=== PATIENT | male | born 1930 | race Caucasian/White ===

== ENCOUNTER 2018-09-05 15:57 | Inpatient (IN) | payer MEDICARE, MEDICAID ==
[2018-09-05] MEDS ORDERED: Acetaminophen 650 MG Suppository PR PRN (18:37)
[2018-09-05] MEDS ORDERED: Acetaminophen 325 MG TAB PO PRN (18:37)
[2018-09-05] MEDS ORDERED: Ondansetron ODT 4 MG TAB PO PRN (18:37)
[2018-09-05] MEDS ORDERED: Ondansetron PF 4 MG/2 ML Vial IVP PRN (18:37)
[2018-09-05] MEDS ORDERED: Vancomycin HCl 1.5 GM in Sodium Chloride 0.9% 250 ML 300 ML IVPB ONE (20:00)
[2018-09-05] MEDS: Famotidine/PF 20 mg/2ml Vial SLOW IVP SCH (21:42)
[2018-09-05] MEDS: Cefepime 2 GM in Sodium Chloride 0.9% 100 ML IVPB SCH (21:42)
[2018-09-05 22:54] VITALS: BMI 26.7
--- NOTE | 2018-09-06 00:41 | HP ---
PRIMARY CARE PHYSICIAN: Dr. Rhodes. CHIEF COMPLAINT: Vomiting and fever. HISTORY OF PRESENT ILLNESS: This is an 88-year-old white male with a known history of progressive dementia as well as hypertension, who presents as a transfer from [facility]. The patient is a resident of [facility]. Had progression of dementia where he sleeps most of the time and talks very little now. He was in his normal state of health even through [facility] and was brought to the home by his family for a couple hours to spend [place] with them. In the [facility], he was noted to have nausea and vomiting starting yesterday. They started to have him sitting up most of the time and switching him to a liquid diet to try and prevent aspiration. He vomited again this morning and then hours after that, he was noted to have a low-grade temperature. At the [facility], he was also noted to have some wet breath sounds and so he was transferred to [facility]. In the [facility], he was noted to have a lactic acid of 4.4. He has also had a low oxygen saturation in the 70s to 80s on a Ventimask. He was given couple liters of IV fluids as well as antibiotics and then transferred here. On arrival to our emergency room, he was saturating well on a nasal cannula. His lactic acid has resolved to 2.0, and he also had a CT scan showing bilateral lower lung pneumonia, so he is being admitted. PAST MEDICAL HISTORY: All history taken from the chart and from the family members in the room due to the patient's dementia. He is unable to participate with the exam. 1. Alzheimer's dementia. 2. Peripheral venous insufficiency in lower extremities. 3. Depression. 4. Questionable history of hypertension. 5. Dysphagia by swallow study by Speech Therapy, requiring thickened liquids and puree in the [facility]. PAST SURGICAL HISTORY: None. SOCIAL HISTORY: No history of tobacco or alcohol use. The patient is and lives in [facility]. ALLERGIES: 1. AMBIEN. 2. ARICEPT. CURRENT MEDICATIONS: 1. Namenda 10 mg twice a day. 2. Potassium chloride 20 mEq 2 times a day. 3. Zofran as needed. FAMILY HISTORY: Multiple family members with dementia. No other family history. REVIEW OF SYSTEMS: See HPI. Unable to obtain review of systems otherwise secondary to the patient's dementia. PHYSICAL EXAMINATION: VITAL SIGNS: Blood pressure 108/73, pulse 112, temperature 99.1, O2 saturation 97% on nasal cannula, and respirations 24. GENERAL: This is a well-developed, well-nourished, elderly male, who is somnolent, but arousable, is nonverbal. HEENT: Eyes; pupils equal, round, and reactive to light. Oropharynx is little dry, but without any exudate or lesions. NECK: No masses. No JVD. No lesions. CARDIOVASCULAR: Regular rate and rhythm. No murmurs, rubs, or gallops. LUNGS: He does have some wet crackles in the bilateral bases and little bit of a wet cough intermittently. No significant increased work of breathing at this time. ABDOMEN: Soft, nontender to palpation. Normoactive bowel sounds. No hepatosplenomegaly or other masses. EXTREMITIES: No clubbing, cyanosis, or edema. He has intact peripheral pulses. SKIN: No rashes or lesions noted. NEUROLOGIC: He does seem to move all extremities, though minimally. PSYCHIATRIC: He is somnolent, but somewhat arousable and going back to sleep, does not speak and does grimace to any noxious stimuli. LABORATORY DATA: CBC within normal limits except for neutrophil percentage of 83%. Complete metabolic panel was notable for a creatinine of 1.29, a BUN of 38, carbon dioxide of 16, glucose of 201. The rest was normal. Lactic acid as above was initially 4.4, down to 2.0 after resuscitation. Troponin was normal. Urinalysis was negative for infection. CT of the chest, abdomen, and pelvis with contrast reviewed from the [facility], showing mild pulmonary edema and multifocal lower lobe pneumonia. No other abnormalities. ASSESSMENT: 1. Bilateral multifocal lower lobe pneumonia, likely aspiration pneumonia from his nausea, vomiting, though the nausea and vomiting may have been secondary to previously developed pneumonia. The patient has high morbidity due to his age and his baseline mental status. The family does want treatment, but does not want any heroic measures and he is DNR. We will treat him with Levaquin and cefepime. We will also consult Pulmonology, Dr. Coles, to assist with the patient's care. For now, he is saturating well on nasal cannula and he can go to a medical bed, especially given that they do not want any resuscitation attempts should he decline further. 2. Alzheimer's dementia. 3. Gastrointestinal prophylaxis. Put the patient on Pepcid IV. 4. Dysphagia. We will consult Speech Therapy and make the patient n.p.o. for now. 5. Code status. The patient is a do not attempt resuscitation. His medical decision maker is his , Liliana Frost, as well as his daughter, Yuliya Hoover. 6. Sepsis. Cultures drawn, antibiotics given, fluid resuscitation complete with normal BP and Lactic acid normalized. Job ID: [id number] [facility]
[2018-09-06 07:31] LABS: #Eosinphils 0.1 thou/uL (0.0-0.7); #Lymphocytes 1.7 thou/uL (1.20-3.40); #Monocytes 0.5 thou/uL (0.11-0.59); %Basophils 0.2 % (0.0-1.0); %Eosinophils 0.9 % (0.0-10.0); %Lymphocytes 20.5 % (21.0-51.0); %Monocytes 5.4 % (0.0-10.0); %Neutrophils 72.9 % (42.0-75.0); Hemoglobin 12.7 g/dL (14.0-18.0); Mean Corpuscular HGB CONC 33.7 g/dL (32.0-36.0); Mean Corpuscular Hemoglobin 30.6 pg (27.0-31.0); Mean Corpuscular Volume 90.9 fL (78.0-98.0); Mean Platelet Volume 8.5 fL (7.4-10.4); Platelet Count 158 thou/uL (130-400); RBC Distribution Width 13.2 % (11.5-14.5); Red Blood Cell (RBC) Count 4.14 mill/uL (4.70-6.10); White Blood Cell (WBC) Count 8.3 thou/uL (4.8-10.8)
[2018-09-06 07:38] LABS: Anion Gap 9 mmol/L (10-20); BUN (Urea Nitrogen) 27 mg/dL (8.4-25.7); Calc. Creatinine Clearance 95 mL/min (70-130); Calcium 8.8 mg/dL (7.8-10.44); Carbon Dioxide 22 mmol/L (23-31); Chloride 115 mmol/L (98-107); Estimated GFR-MDRD Greater than 90; Glucose 102 mg/dL (83-110); Potassium 3.5 mmol/L (3.5-5.1); Sodium 142 mmol/L (136-145)
[2018-09-06] MEDS: Cefepime 2 GM in Sodium Chloride 0.9% 100 ML IVPB SCH ×2 (08:15→21:31)
[2018-09-06] MEDS: Famotidine/PF 20 mg/2ml Vial SLOW IVP SCH ×2 (08:16→21:30)
[2018-09-06] MEDS: Enoxaparin Sodium 40 MG/0.4 ML SYRINGE SC SCH (08:17)
--- NOTE | 2018-09-06 15:22 | CON ---
DATE OF CONSULTATION: 09/06/2018 SERVICE: Pulmonary Medicine REASON FOR CONSULTATION: Pneumonia. HISTORY OF PRESENT ILLNESS: The patient is an 88-year-old white male with very advanced dementia. He is in his usual state of health when he had a coughing choking spell associated with nausea and vomiting. He aspirated, cried down into his lungs. He started having a coughing fit and increasing shortness of breath. He was brought to the emergency department. A CT of the chest confirmed that he had an aspiration-related disease. He cannot provide any additional elements of the history given his advanced dementia. At baseline, he is a two-person assist to get into a wheelchair. He can be brought to the dining room, but he has to be spoon -fed everything. He does have a good appetite. The family is indicating that since he has been in the hospital, he has made a dramatic recovery. He continues to have a persistent cough, but is not getting anything. PAST MEDICAL HISTORY: 1. Dementia, advanced. 2. Peripheral vascular disease. 3. Major depressive disorder. 4. Hypertension. 5. Oropharyngeal dysphagia. PAST SURGICAL HISTORY: None. SOCIAL HISTORY: Negative for alcohol, tobacco, or illicit drug use. He is a former rancher. He has no exposure to chemicals, dust, asbestos, or tuberculosis. FAMILY HISTORY: Noncontributory. ALLERGIES: DONEPEZIL, ZOLPIDEM. MEDICATIONS: List of inpatient medications were reviewed. REVIEW OF SYSTEMS: This cannot be obtained due to advanced dementia. PHYSICAL EXAMINATION: VITAL SIGNS: Afebrile, pulse 98, blood pressure 138/78, respirations 18, and saturation 94% on 4 L nasal cannula. GENERAL: The patient is awake and alert, in no apparent distress. LUNGS: Excellent air entry. Rhonchi are present. There is no prolonged expiratory phase or crackles present. HEART: Normal rate, regular. ABDOMEN: Soft, nontender, and nondistended. Bowel sounds are positive. MUSCULOSKELETAL: No cyanosis or clubbing. There is no pitting in bilateral lower extremities. NEUROLOGIC: Grossly nonfocal. LABORATORY DATA: WBC 8.3, hemoglobin 12.7, and platelets 158,000. PH of 7.42, pCO2 of 24, and pO2 of 164. Creatinine 0.71 and downtrending, BUN 27. Basic metabolic profile is otherwise unremarkable. Potassium 3.5. Lactate 2.0 and resolved. BNP 54. Urinalysis is essentially unremarkable. Influenza A and B are negative. Blood cultures x2 remain negative to date. IMAGING DATA: CT of the chest, abdomen, and pelvis demonstrate bibasilar dependent pneumonitis changes. There is no acute intraabdominal process occurring. ASSESSMENT: 1. Acute hypoxic respiratory failure, improving. 2. Healthcare-associated pneumonia, improving. 3. Oropharyngeal dysphagia. 4. Dementia, advanced. PLAN: The patient is doing fine from respiratory standpoint. Since he is clearly recovering, we can continue our current antibiotics. In 24 hours, if he remains fever free, and his white blood cell count remains low, we can switch him over to oral antibiotics and consider discharging him back to his care facility. He will need a total duration of 7 days of antibiotics. 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 True infection is unlikely to exist, but in a gentleman who is not able to give us additional history, I think it is reasonable to treat this with a 7-day course of Augmentin starting tomorrow morning. Pulmonary/Critical Care will continue to follow along for now, but if all goes well, he can be transitioned back to his nursing facility tomorrow morning. 70 minutes have been devoted to this patient in various activities. I personally reviewed all imaging studies and laboratory data noted within this document. For fifty percent of this time, I was interacting with the patient at the bedside or coordinating care with the care team. For the remainder of the time I was immediately available to the patient in the hospital unit. [facility] ID: [id number] [facility]
--- NOTE | 2018-09-06 15:35 | PDOC.PN ---
- Subjective Encounter Start Date: 09/06/18 Encounter Start Time: 08:20 Pt seen for followup re: pneumonia. Pt nonverbal, could not complete ROS. - Objective Resuscitation Status - Order Detail: 09/05/18 18:20 Resuscitation Status Routine Resuscitation Status: DNAR: NO Resuscitation Discussed with: and Daughters MAR Reviewed: Yes Vital Signs & Weight: Vital Signs (12 hours) Temp Pulse Resp BP Pulse Ox 09/06/18 08:00 98.1 F 09/06/18 07:46 98.1 F 98 18 138/78 94 L 09/06/18 04:00 98.4 F 97 18 116/71 93 L Weight Weight 203 lb I&O: 09/05/18 09/06/18 09/07/18 06:59 06:59 06:59 Intake Total 500 Balance 500 Result Diagrams: 09/06/18 07:03 09/06/18 07:03 Additional Labs: labs reviewed by me Phys Exam - Physical Examination Constitutional: NAD HEENT: moist MMs Neck: supple Respiratory: clear to auscultation bilateral Cardiovascular: RRR Gastrointestinal: soft Neurological: moves all 4 limbs Psychiatric: normal affect Dx/Plan (1) Acute respiratory failure with hypoxia Code(s): J96.01 - ACUTE RESPIRATORY FAILURE WITH HYPOXIA Status: Acute Comment: secondary to pneumonia, aspiration (2) HCAP (healthcare-associated pneumonia) Code(s): J18.9 - PNEUMONIA, UNSPECIFIED ORGANISM Status: Acute Comment: continue IV antibiotics as below (3) Aspiration into airway Code(s): T17.908A - UNSP FB IN RESP TRACT, PART UNSP CAUSING OTH INJURY, INIT Status: Acute Comment: speech therapy following (4) Alzheimer's dementia Code(s): G30.9 - ALZHEIMER'S DISEASE, UNSPECIFIED; F02.80 - DEMENTIA IN OTH DISEASES CLASSD ELSWHR W/O BEHAVRL DISTURB Status: Chronic Comment: at baseline, per family - Plan * . Review of Systems - Medications/Allergies Allergies/Adverse Reactions: Allergies Allergy/AdvReac Type Severity Reaction Status Date / Time donepezil [From Aricept] Allergy Verified 09/06/18 02:23 zolpidem [From Ambien] Allergy Verified 09/06/18 02:23 Medications: Current Medications Acetaminophen (Tylenol) 650 mg PO Q4H PRN PRN Reason: Headache/Fever/Mild Pain (1-3) Acetaminophen (Tylenol) 650 mg WI Q4H PRN PRN Reason: Headache/Fever/Mild Pain (1-3) Enoxaparin Sodium (Lovenox) 40 mg SC 0900 [facility] Last Admin: 09/06/18 08:17 Dose: 40 mg Famotidine (Pepcid) 20 mg SLOW IVP Q12HR [facility] Last Admin: 09/06/18 08:16 Dose: 20 mg Cefepime HCl 2 gm/ Sodium (Chloride) 100 mls @ 200 mls/hr IVPB Q12HR [facility] Last Admin: 09/06/18 08:15 Dose: 100 mls Levofloxacin 750 mg/ Device 150 mls @ 100 mls/hr IVPB 1800 [facility] Ondansetron HCl (Zofran Odt) 4 mg PO Q6H PRN PRN Reason: Nausea/Vomiting Ondansetron HCl (Zofran) 4 mg IVP Q6H PRN PRN Reason: Nausea/Vomiting
[2018-09-07] MEDS: Enoxaparin Sodium 40 MG/0.4 ML SYRINGE SC SCH (08:15)
[2018-09-07] MEDS: Cefepime 2 GM in Sodium Chloride 0.9% 100 ML IVPB SCH (08:15)
[2018-09-07] MEDS: Famotidine/PF 20 mg/2ml Vial SLOW IVP SCH ×2 (08:15→20:40)
--- NOTE | 2018-09-07 09:11 | PRG ---
DATE OF SERVICE: 09/07/2018 SERVICE: Pulmonary Medicine. INTERVAL HISTORY: The patient is doing great from respiratory standpoint. He is still having coughing spells. That being said, they are much or less frequent and much or less dramatic. He slept very well last night. There has been no interval change to his condition. There are no fevers, otherwise. PHYSICAL EXAMINATION: VITAL SIGNS: Afebrile, pulse 82, blood pressure 124/68, respirations 18, and saturation 94% on room air. GENERAL: The patient is awake and alert, in no apparent distress. LUNGS: Decent air entry. There is no prolonged expiratory phase, rhonchi, or wheezing present. HEART: Normal rate, regular. ABDOMEN: Soft, nontender, and nondistended. Bowel sounds are positive. MUSCULOSKELETAL: No cyanosis or clubbing. There is no pitting in bilateral lower extremities. NEUROLOGIC: Grossly nonfocal. ASSESSMENT: 1. Acute hypoxic respiratory failure, resolved. 2. Healthcare-associated pneumonia, resolving. 3. Oropharyngeal dysphagia. 4. Dementia, advanced. DISCUSSION AND PLAN: At this point, I think it is reasonable to switch over to p.o. antibiotics. The patient is stable for transition out of the hospital. The patient's family is aware that if the cultures result as being abnormal in the next 1 to 3 days, we might have to recall the patient to get him on appropriate antibiotics. That being said, the story here was consistent with an aspiration-related event. He has behaved as such, and made such dramatic recovery that I feel that it would be unsafe to keep him in the hospital. He is probably at less risk for developing healthcare-associated infections in his care facility. If he remains inhouse, Pulmonary will continue to follow, but from my perspective, he is stable for transition out of the hospital today. Job ID: [id number]
--- NOTE | 2018-09-07 09:18 | PRG ---
DATE OF SERVICE: 09/07/2018 SUBJECTIVE: The patient is seen and examined at bedside. His granddaughter is present in the room during my visit. He is in severe dementia. He does not follow my commands, but according to her, he had good rest at night and there were no any unexpected events overnight. OBJECTIVE: VITAL SIGNS: Blood pressure is 124/68, pulse is 82, temperature is 98.7, maximal temperature was 99.1, respiratory rate is 18, O2 saturation is 94%. HEENT: Head is atraumatic and normocephalic. Sclerae are nonicteric. Oral mucosa is moist. LUNGS: A few crackles at both bases. HEART: S1 and S2 normal. No S3. No S4. ABDOMEN: Soft and nondistended. EXTREMITIES: No clubbing, cyanosis, or edema. NEUROLOGIC: Not performed in full extent secondary to the patient's mental status of dementia. LABORATORY DATA: None today. Microbiology: Final of influenza type A and B negative. ASSESSMENT: 1. Healthcare associated pneumonia, improved. 2. Acute respiratory failure with hypoxia, improved. 3. Aspiration into airway. 4. Alzheimer dementia. PLAN: The patient was seen by conservation biology professor, and he recommends to switch him to p.o. and transition him to his half-way soon, and my plan is to switch him to Augmentin 875 mg twice a day, and most likely he will be transferred back to the half-way in the next 24 hours. Job ID: [id number]
[2018-09-07] MEDS: Amoxicillin/Potassium Clav 875 MG TAB PO SCH ×2 (09:26→20:40)
[2018-09-07] MEDS ORDERED: Ibuprofen 200 MG TAB PO PRN (17:57)
[2018-09-08] MEDS: Amoxicillin/Potassium Clav 875 MG TAB PO SCH (09:46)
[2018-09-08] MEDS: Famotidine/PF 20 mg/2ml Vial SLOW IVP SCH ×2 (09:46→20:27)
[2018-09-08] MEDS: Enoxaparin Sodium 40 MG/0.4 ML SYRINGE SC SCH (09:46)
[2018-09-08 11:08] LABS: #Basophils 0.1 thou/uL (0.0-0.2); #Eosinphils 0.1 thou/uL (0.0-0.7); #Lymphocytes 1.6 thou/uL (1.20-3.40); #Monocytes 0.6 thou/uL (0.11-0.59); #Neutrophils 5.2 thou/uL (1.40-6.50); %Basophils 0.7 % (0.0-1.0); %Eosinophils 1.1 % (0.0-10.0); %Lymphocytes 21.7 % (21.0-51.0); %Monocytes 7.3 % (0.0-10.0); %Neutrophils 69.2 % (42.0-75.0); Hemoglobin 13.8 g/dL (14.0-18.0); Mean Corpuscular HGB CONC 35.2 g/dL (32.0-36.0); Mean Corpuscular Hemoglobin 31.6 pg (27.0-31.0); Mean Corpuscular Volume 89.8 fL (78.0-98.0); Mean Platelet Volume 7.8 fL (7.4-10.4); Platelet Count 196 thou/uL (130-400); RBC Distribution Width 12.9 % (11.5-14.5); Red Blood Cell (RBC) Count 4.37 mill/uL (4.70-6.10); White Blood Cell (WBC) Count 7.6 thou/uL (4.8-10.8)
[2018-09-08 11:28] LABS: Anion Gap 15 mmol/L (10-20); BUN (Urea Nitrogen) 18 mg/dL (8.4-25.7); Calc. Creatinine Clearance 100 mL/min (70-130); Calcium 8.8 mg/dL (7.8-10.44); Carbon Dioxide 19 mmol/L (23-31); Chloride 108 mmol/L (98-107); Estimated GFR-MDRD Greater than 90; Glucose 125 mg/dL (83-110); Potassium 3.3 mmol/L (3.5-5.1); Sodium 139 mmol/L (136-145)
--- NOTE | 2018-09-08 12:30 | PRG ---
DATE OF SERVICE: 09/08/2018 SUBJECTIVE: The patient is confused, does not communicate. OBJECTIVE: VITAL SIGNS: On exam, temperature is 100.7, pulse 90, respiratory rate 32, O2 sat 98% on nasal cannula, and blood pressure 115/67. HEENT: Unremarkable. NECK: No JVD. LUNGS: Coarse breath sounds. CARDIAC: S1 and S2, regular. ABDOMEN: Soft. EXTREMITIES: No edema. LABORATORY DATA: White blood cell count 7.6, hematocrit of 39.2, and platelet count 196. Sodium 139, potassium 3.3, chloride 109, CO2 of 19, BUN 18, creatinine 0.6, and glucose 125. ASSESSMENT: 1. Aspiration pneumonia. 2. Acute hypoxic respiratory failure. PLAN: The patient is not doing as well. Currently, we will continue the antibiotics. His prognosis is poor. Job ID: [id number]
--- NOTE | 2018-09-08 15:12 | PRG ---
DATE OF SERVICE: 09/08/2018 ADDENDUM: The patient is seen and examined at the bedside. There is a family member at the bedside. Apparently, he had some fever yesterday and last night. His respirations are up. He is not eating like he used to. OBJECTIVE: VITAL SIGNS: Blood pressure is 116/61, temperature is 99.5, pulse is 90, respiratory rate is 28, O2 saturation is 90% on room air. We tried to keep his oxygen on by nasal cannula, but he keeps taking the nasal cannula off, so we decided to not to use any O2 for the time being. LUNGS: Bilateral rales and few crackles bilaterally. HEART: S1, S2 normal. No S3. No S4. ABDOMEN: Soft, nontender, nondistended. EXTREMITIES: No clubbing, cyanosis. There is 1+ peripheral edema similar bilaterally. NEUROLOGICAL: He is able to move his all four extremities. He is demented quite severely. LABORATORY DATA: None today. MICROBIOLOGY: None. IMPRESSION: 1. Acute hypoxic respiratory failure, resolved. 2. Healthcare-associated pneumonia. The patient is showing more symptoms. He is more tachypneic. This morning, he is running some fever. We will switch him back to IV levofloxacin since he is not taking the medications like he should orally. We will use some Tylenol for his fever. 3. Oropharyngeal dysphagia. We will have Speech therapist to re-evaluate his ability to swallow. 4. Advanced dementia. PLAN: As I mentioned above, switch him back to IV levofloxacin. Have Speech therapist to evaluate his swallowing again. If it is possible, I am holding his discharge today since he is significantly worse than what he was. We will keep him on DNR status and we will obtain CBC and BMP along with lactic acid and if he gets worse, we will have to probably push for O2 supplementation. Job ID: [id number]
--- NOTE | 2018-09-08 15:13 | PRG ---
DATE OF SERVICE: 09/08/2018 SUBJECTIVE: The patient is seen and examined at the bedside. There is a family member in the room during my visit. Apparently, he started having some fever yesterday and last night up to 100.4 and his respirations significantly up to 25 to 28 times per minute. OBJECTIVE: VITAL SIGNS: Blood pressure is to be checked. His pulse is 94, respiratory rate is up to 28. HEENT: His head is atraumatic and normocephalic. Pupils are responding to light properly. Conjunctiva is pinkish. Sclerae nonicteric. LUNGS: Bilateral rales present at both bases. Few wheezes bilaterally. HEART: S1, S2 normal. No S3. No S4. ABDOMEN: Soft, nontender, nondistended. EXTREMITIES: 1+ peripheral edema similar bilaterally. NEUROLOGICAL EXAMINATION: He is very demented. He does not follow my commands, but he is able to move his all four extremities. LABORATORY DATA: None today. IMPRESSION: Job ID: [id number]
[2018-09-08] MEDS ORDERED: Potassium Chloride 20 MEQ TAB PO SCH (16:30)
[2018-09-09] MEDS: Famotidine/PF 20 mg/2ml Vial SLOW IVP SCH (09:23)
[2018-09-09] MEDS: Enoxaparin Sodium 40 MG/0.4 ML SYRINGE SC SCH (09:24)
[2018-09-09 11:42] VITALS: TEMP 98
--- NOTE | 2018-09-09 12:52 | PRG ---
DATE OF SERVICE: 09/09/2018 SUBJECTIVE: The patient is more awake than yesterday. His fever trend has been better. OBJECTIVE: VITAL SIGNS: On exam, temperature is 98.0, pulse 83, respirations 22, O2 saturation 93%, blood pressure 131/74. HEENT: Unremarkable. NECK: No JVD. CHEST: Clear anteriorly. CARDIAC: S1 and S2. Regular. ABDOMEN: Soft. EXTREMITIES: No edema. ASSESSMENT: 1. Aspiration pneumonia. 2. Acute hypoxic respiratory failure. PLAN: The patient is going to continue to have problems with recurrent aspiration. I have told the family, I think the best they can do is comfort type measures and just finish out, treat with antibiotics for the current pneumonia. He should be able to transfer back to his nursing facility soon. Job ID: [id number]
[2018-09-09 16:32] VITALS: BP 145/71
--- NOTE | 2018-09-10 04:26 | DIS ---
DATE OF ADMISSION: 09/05/2018 DATE OF DISCHARGE: 09/09/2018 FINAL DIAGNOSES: 1. Aspiration pneumonia. 2. Acute hypoxic respiratory failure, resolved. 3. Oropharyngeal dysphagia. 4. Advanced dementia. CONSULTANTS: Dr. Hart and Dr. Millard for Pulmonary Services. HOSPITAL COURSE: The patient is an 88-year-old, very demented, male with known history of progressive dementia as well as hypertension, who was transferred from [facility]. He had some vomiting and started having some low-grade temperature after that at the care home, where he lives. His breath sounds became wet and he was transferred to [facility] for further evaluation. He had lactic acid of 4.4 while in the ER there and he was saturating in the 70s to 80s on a Ventimask. He was started on IV fluids and antibiotics, transferred to the [facility] Room, where CT of the chest showed bilateral lower lung pneumonia. At the time of emergency room visit, his CBC was within normal limits. He had 83% of neutrophils. Creatinine was up to 1.29, BUN 38, glucose was 201. Lactic acid was 4.4 initially, then 2.0 after resuscitation with fluids. Troponin was normal. Urinalysis was negative for infection. He was treated with Levaquin and cefepime. Derrick Follower was consulted. The patient was seen by Dr. Hart, who recommended to continue current antibiotics. This was aspiration related disease or aspiration pneumonitis, and it was unlikely that this was a true infection. He recommended to switch him to oral Augmentin and transfer him back to the care home but the next day when he was supposed to be transferred, he started having more respiratory distress and fever, so he was switched back to IV levofloxacin and treated accordingly. After improvement today, we made a decision about transferring him back to his care home for continuation of his antibiotic, which is levofloxacin 500 mg daily for the next 5 days. Also, he will continue on his memantine 10 mg twice a day. His primary care physician will follow up with him in the next week or two. The patient was seen and examined before his discharge. Discharge time is less than 30 minutes. Job ID: [id number]
--- NOTE | 2018-09-12 08:48 | PQF ---
[employer] Dist[employer] Supervisor Crystal Reports Winform ViewerDANIEL GARZA, MEENU HANNAH MD [id number] [id number] CLINICAL DOCUMENTATION CLARIFICATION FORM: POST DISCHARGE Addendum to original discharge summary date: ____ Late entry note date: __ Please exercise your independent, professional judgment in responding to the clarification form. Clinical indicators are provided on the bottom of this form for your review Please check appropriate box(s) to clarify if the following diagnosis has been ruled in or ruled out: SEPSIS (CDI/Coding list diagnosis here) [ X ] Ruled in diagnosis [ ] Continue to treat [ X ] Resolved [ ] Ruled out diagnosis [ ] Cannot rule out diagnosis [ ] Other diagnosis [ ] Unable to determine In addition, please specify: Present on Admission (POA): [ ] Yes [ ] No [ ] Unable to determine For continuity of documentation, please document condition throughout progress notes and discharge summary. Thank You. CLINICAL INDICATORS - SIGNS / SYMPTOMS / LABS FEVER- H&P LACTIC ACID 4.4 IN [facility], RESOLVED TO 2.0 IN OUR ER- H&P SEPSIS W/ ASPIRATION PNEUMONIA- H&P ACUTE HYPOXIC RESPIRATORY FAILURE- PN 09/07, 09/08, 09/09 AND D/S RISK FACTORS ASPIRATION PNEUMONIA- H&P, D/S AND ALL PROGRESS NOTES TREATMENTS GIVEN A COUPLE LITERS OF IV FLUIDS AND ANTIBIOTICS IN [facility] THEN TRANSFERRED HERE- H&P, D/S CONSULT W/ DR. GARCIA ON 09/06 [employer] Supervisor [employer] Winform Viewer(This form is maintained as a part of the permanent medical record) 2014 [employer]. All Rights Reserved [email or web address] [phone] [facility]
== END 2018-09-09 16:49 | DRG 871 ==
LOC: ERS 15:57 → ERHOLD 17:43 → T4-B 20:28
PROVIDERS: ADMIT Emergency Medicine; ATTEND Emergency Medicine
DX: A41.9 Sepsis, unspecified organism (principal); J69.0 Pneumonitis due to inhalation of food and vomit; J96.01 Acute respiratory failure with hypoxia; I10 Essential (primary) hypertension; G30.9 Alzheimer's disease, unspecified; F02.80 Dementia in other diseases classified elsewhere, unspecified severity, without behavioral disturbance, psychotic disturbance, mood disturbance, and anxiety; I87.8 Other specified disorders of veins; F32.9 Major depressive disorder, single episode, unspecified; R13.12 Dysphagia, oropharyngeal phase; Z66 Do not resuscitate
CPT/HCPCS: 36415; 80048; 83605; 85025; 87804; 96365; 96366; 96375; J0692; J1650; J1956; J3370; J7050; S0028